=== PATIENT | female | born 1975 | race Caucasian/White ===

== ENCOUNTER 2023-09-04 09:18 | Emergency (ER) | payer BC ==
[2023-09-04] MEDS ORDERED: HYDROcodone/Acetaminophen 10/325 mg Tablet ONE (10:08)
== END 2023-09-04 10:36 | disposition home or self-care (01) ==
LOC: CSHERS 09:18
DX: S76.311A Strain of muscle, fascia and tendon of the posterior muscle group at thigh level, right thigh, initial encounter (principal); X58.XXXA Exposure to other specified factors, initial encounter
CPT/HCPCS: 99283